=== PATIENT | male | born 1950 | race Two or more races ===

== ENCOUNTER 2017-02-10 07:01 | Outpatient (CLI) | payer MEDICARE, OTHER ==
[2017-02-10] MEDS ORDERED: REGADENOSON 0.4 MG/5 ML DISP.SYRIN IVP ONE (08:30)
== END 2017-02-10 23:59 ==
LOC: NM 07:01
PROVIDERS: ATTEND Internal Medicine Interventional Cardiology
DX: I25.9 Chronic ischemic heart disease, unspecified (principal); I21.3 ST elevation (STEMI) myocardial infarction of unspecified site
CPT/HCPCS: 78452; A9502; J2785

== ENCOUNTER 2017-02-13 09:13 | Outpatient (CLI) | payer MEDICARE, OTHER ==
[2017-02-13 09:53] LABS: CREATININE 1.3 mg/dL (0.6-1.3)
== END 2017-02-13 23:59 | disposition home or self-care (01) ==
LOC: CT 09:13
PROVIDERS: ATTEND Internal Medicine Interventional Cardiology
DX: I25.10 Atherosclerotic heart disease of native coronary artery without angina pectoris (principal); R94.31 Abnormal electrocardiogram [ECG] [EKG]
CPT/HCPCS: 36415; 75574; 82565; 84520; 93005; J7050; Q9967; J3490

== ENCOUNTER 2017-08-04 12:14 | Outpatient (CLI) | payer MEDICARE, OTHER ==
[2017-08-04 12:45] LABS: BASOPHILS % (AUTO) 0.4 % (0.0-2.0); EOSINOPHILS # (AUTO) 0.2 /CMM (0.0-0.7); HEMATOCRIT 45 % (39-51); HEMOGLOBIN 14.8 g/dL (13.5-17.5); LYMPHOCYTES # (AUTO) 1.7 /CMM (0.8-4.8); LYMPHOCYTES % (AUTO) 19.8 % (20.0-44.0); MEAN CORPUSCULAR HEMOGLOBIN 30 PG (26.0-33.0); MEAN CORPUSCULAR HGB CONC 33 g/dl (31.0-36.0); MEAN CORPUSCULAR VOLUME 90 fL (80-96); MONOCYTES # (AUTO) 0.8 /CMM (0.1-1.30); MONOCYTES % (AUTO) 9.4 % (2.0-12.0); NEUTROPHILS # (AUTO) 5.8 /CMM (1.8-8.9); NEUTROPHILS % (AUTO) 68.4 % (43.0-81.0); PLATELET COUNT (AUTO) 148 /CMM (150-450); RDW COEFFICIENT OF VARIATION 13.6 (11.5-15.0); RED BLOOD CELL COUNT(AUTO) 4.96 MIL/uL (4.5-6.0); WHITE BLOOD COUNT (AUTO) 8.5 K/uL (4.3-11.0)
[2017-08-04 13:22] LABS: CALCIUM, SERUM 8.6 mg/dL (8.5-10.1); CREATININE 1.4 mg/dL (0.6-1.3)
== END 2017-08-04 23:59 | disposition home or self-care (01) ==
LOC: LAB 12:14
PROVIDERS: ATTEND Internal Medicine Interventional Cardiology
DX: I25.10 Atherosclerotic heart disease of native coronary artery without angina pectoris (principal); I10 Essential (primary) hypertension
CPT/HCPCS: 36415; 80048-TC; 85025-TC